=== PATIENT | female | born 1960 | race Caucasian/White ===

== ENCOUNTER → 2016-10-07 | Outpatient (CLI) | payer BC | END | disposition home or self-care (01) | LOC: C.LABPBG 07:15 | PROVIDERS: ATTEND Internal Medicine | DX: R74.8 Abnormal levels of other serum enzymes (principal) ==

== ENCOUNTER → 2017-04-12 | Outpatient (CLI) | payer BC ==
[2017-04-12 10:27] LABS: CHOLESTEROL/HDL RATIO 2.5; THYROID STIMULATING HORMONE 3.01 uIu/ml (0.300-4.500)
== END | disposition home or self-care (01) ==
LOC: C.LAB 07:14
PROVIDERS: ATTEND Internal Medicine
DX: E03.9 Hypothyroidism, unspecified (principal)

== ENCOUNTER → 2017-12-13 | Outpatient (CLI) | payer BC ==
[2017-12-15 10:22] LABS: MICROSOMAL AB <1 IU/ML (<9)
== END | disposition home or self-care (01) ==
LOC: C.LAB1850 16:53
PROVIDERS: ATTEND Internal Medicine
DX: E04.9 Nontoxic goiter, unspecified (principal)

== ENCOUNTER → 2017-12-19 | Outpatient (CLI) | payer BC ==
--- NOTE | 2017-12-19 09:26 | DIAGNOSTIC IMAGING REPORT ---
ULTRASOUND OF THE THYROID GLAND CLINICAL HISTORY: Thyromegaly. COMPARISON STUDY: No priors. TECHNIQUE: Real-time, grayscale, and color flow sonography of the thyroid gland is performed utilizing a high-frequency linear transducer. Images are reviewed in the transverse and longitudinal planes. FINDINGS: Right lobe: The right lobe of the thyroid gland is normal in size and homogeneous in echotexture, measuring 4.8 x 1.6 x 1.7 cm. 2 subcentimeter colloid cysts are incidentally noted. Left lobe: The left lobe of the thyroid gland is normal in size and homogeneous in echotexture, measuring 4.7 x 1.9 x 2.5 cm. A complex and probably cystic nodule in the mid to lower pole measures 2.9 x 1.7 x 2.4 cm. Isthmus: The thyroid isthmus is normal in appearance and measures 0.4 cm in AP diameter. IMPRESSION: 1. The thyroid gland is normal in size and echotexture. 2. There is an almost entirely cystic nodule in the mid to lower pole on the left which measures up to 2.9 cm. This is of low suspicion and a one-year follow-up ultrasound is recommended for reassessment. Alternatively, fine-needle aspiration could be considered. Electronically signed by: Jovon Lynn M.D. 12/19/2017 9:24 AM Dictated Date/Time: 12/19/2017 9:22 AM
== END | disposition home or self-care (01) ==
LOC: C.ULTRBC 08:55
PROVIDERS: ATTEND Internal Medicine
DX: E04.9 Nontoxic goiter, unspecified (principal)

== ENCOUNTER → 2018-01-01 | Outpatient (CLI) | payer BC ==
--- NOTE | 2018-01-01 10:55 | Discharge Instructions ---
Discharge Instructions Procedure Procedure Date: Jan 01, 2018. Reason for visit: Enlarged Thyroid Gland,Thyroid Nodule. Discharge Discharge Date: Jan 01, 2018. Discharge Diagnosis: Thyroid nodule Instructions Activity Recommendations: No limitations Return to School/Work: no limitations Recommended Home Diet: Resume Previous Diet Provider Instructions: ACTIVITY RECOMMENDATIONS: * Rest today. * Resume regular activity in one day. MEDICATIONS: * May take Tylenol or Ibuprofen as needed for pain. DIET: * Resume previous diet. SPECIAL CARE INSTRUCTIONS: Call your doctor if: * Temperature above 101 degrees F. * Pain not relieved by pain medicine ordered. * Increased drainage or redness from incision. * Notify your doctor with any questions or concerns. Call your doctor or go to the nearest Emergency Department if you experience: * Increased chest pain or shortness of breath. FOLLOW UP VISIT: Follow-up with Referring Physician as scheduled. Roney Chung Recommendations: Call your doctor if: * Temperature above 101 degrees * Pain not relieved by pain medicine ordered * There is increased drainage or redness from any incision * You have any unanswered questions or concerns. Your Doctors Instructions noted above were prepared by provider Jovon Lynn. Patient Signature Section: Patient Instructions Signature Page Andree Mccallum Patient (or Guardian) Signature/Date: I have read and understand the instructions given to me by my caregivers. Caregiver/RN/Doctor Signature/Date: The above-named patient and/or guardian has received patient instructions on this date. + Original Patient Signature Page (only) stays with chart. Please make copy for patient.
--- NOTE | 2018-01-02 07:50 | DIAGNOSTIC IMAGING REPORT ---
ULTRASOUND-GUIDED FINE-NEEDLE ASPIRATION THYROID CLINICAL HISTORY: Cystic left lobe thyroid nodule. COMPARISON STUDY: Thyroid ultrasound dated 12/19/2017. PROCEDURE: The risks, benefits, and alternatives to the procedure were discussed with the patient. Written informed consent was obtained. The patient was placed supine in ultrasound, and the 2.9 x 1.7 x 2.4 cm predominantly cystic nodule in the left lobe of the thyroid was localized by ultrasound and selected for fine needle aspiration. The left neck was prepped and draped in the usual sterile fashion. The nodule was aspirated under ultrasound guidance with 3 passes utilizing 25-gauge needles. The initial pass was in the solid component of the lesion. The second 2 passes were used to aspirate the cystic component. The largest cystic component had largely resolved at the completion of the examination. Specimens were reviewed by the pathologist in real-time and deemed adequate for diagnosis. The patient tolerated the procedure well and left the department in satisfactory condition. IMPRESSION: Completed fine-needle aspiration of a left thyroid nodule as above. Electronically signed by: Jovon Lynn M.D. 01/01/2018 11:51 AM Dictated Date/Time: 01/01/2018 11:49 AM
== END | disposition home or self-care (01) ==
LOC: C.ULTR 09:29
PROVIDERS: ATTEND Internal Medicine Endocrinology, Diabetes & Metabolism
DX: E04.1 Nontoxic single thyroid nodule (principal)